=== PATIENT | male | born 1950 | race Caucasian/White ===

== ENCOUNTER 2019-03-08 11:07 | Emergency (ER) | payer MEDICARE, BC ==
[~2019-03-08] VITALS: Ht 175.3 cm; Wt 99.8 kg
[2019-03-08] MEDS ORDERED: ASPI81CH PO (12:04)
[2019-03-08] MEDS ORDERED: [UNRECOGNIZED DRUG - OTHER] PO (12:04)
[2019-03-08] MEDS ORDERED: LOSA50 PO (12:04)
[2019-03-08] MEDS ORDERED: ALLEGRA ALLERG180 MG PO (12:05)
[2019-03-31] MEDS ORDERED: TAMS.4ER PO (12:23)
[2019-03-31] MEDS ORDERED: Aspirin EC81 MG PO (12:23)
[2019-03-31] MEDS ORDERED: LOSARTAN-HCTZ1 EACH PO (12:23)
== END 2019-03-08 13:45 | disposition home or self-care (01) ==
LOC: ER 11:07
DX: K64.4 Residual hemorrhoidal skin tags (principal); Z79.899 Other long term (current) drug therapy; Z79.82 Long term (current) use of aspirin; I10 Essential (primary) hypertension
CPT/HCPCS: 99282

== ENCOUNTER 2019-04-08 09:12 | Day surgery (SDC) | payer MEDICARE, BC ==
[~2019-04-08] VITALS: Ht 175.3 cm; Wt 97.6 kg
[~2019-04-08 09:12] MED LIST: ALLEGRA ALLERG180 MG PO; ASPI81CH PO; Aspirin EC81 MG PO; LOSA50 PO; LOSARTAN-HCTZ1 EACH PO; TAMS.4ER PO; [UNRECOGNIZED DRUG - OTHER] PO
== END 2019-04-08 11:25 | disposition home or self-care (01) ==
LOC: ORSCSDS 09:12
PROVIDERS: Surgery
PROC: 0DBP8ZX Excision of Rectum, Via Natural or Artificial Opening Endoscopic, Diagnostic (ICD-10-PCS; principal; 2019-04-08 10:30)
DX: Z12.11 Encounter for screening for malignant neoplasm of colon (principal); K62.1 Rectal polyp; I10 Essential (primary) hypertension; E78.5 Hyperlipidemia, unspecified; E66.9 Obesity, unspecified; Z87.891 Personal history of nicotine dependence; Z68.33 Body mass index [BMI] 33.0-33.9, adult; Z79.82 Long term (current) use of aspirin; Z79.899 Other long term (current) drug therapy
CPT/HCPCS: 88305; J2704

== ENCOUNTER 2023-01-07 06:13 | Day surgery (SDC) | payer MEDICARE ==
[~2023-01-07] VITALS: Ht 172.7 cm; Wt 91.5 kg
[2023-01-07] MEDS ORDERED: ROSUVASTATIN CAL5 MG PO (06:29)
[2023-01-07] MEDS ORDERED: OMEP20ER PO (06:32)
--- NOTE | 2023-01-07 06:36 | NUR ---
01/07/23 0636 Afia Escalona AT 0630 PLEDGET AT 0631
[2023-01-07 07:59] VITALS: BP 115/82
--- NOTE | 2023-01-07 08:01 | NUR ---
01/07/23 0801 Enrique Cruz IV REMOVED INTACT. SITE WNL.
== END 2023-01-07 08:12 | disposition home or self-care (01) ==
LOC: ORSCSDS 06:13
PROVIDERS: Student in an Organized Health Care Education/Training Program
PROC: 08RJ3JZ Replacement of Right Lens with Synthetic Substitute, Percutaneous Approach (ICD-10-PCS; principal; 2023-01-07 07:30)
DX: H25.13 Age-related nuclear cataract, bilateral (principal); H52.201 Unspecified astigmatism, right eye; H21.81 Floppy iris syndrome; I10 Essential (primary) hypertension; E78.00 Pure hypercholesterolemia, unspecified; J45.909 Unspecified asthma, uncomplicated; K21.9 Gastro-esophageal reflux disease without esophagitis; Z79.899 Other long term (current) drug therapy
CPT/HCPCS: J2001; J2250; J3010; J7040; V2632

== ENCOUNTER 2023-02-18 13:03 | Day surgery (SDC) | payer MEDICARE ==
[~2023-02-18] VITALS: Ht 172.7 cm; Wt 90.8 kg
[~2023-02-18 13:03] MED LIST changes: +OMEP20ER PO; +ROSUVASTATIN CAL5 MG PO
[2023-02-18 14:30] VITALS: BP 127/85
== END 2023-02-18 14:45 | disposition home or self-care (01) ==
LOC: ORSCSDS 13:03
PROVIDERS: Student in an Organized Health Care Education/Training Program
PROC: 08RK3JZ Replacement of Left Lens with Synthetic Substitute, Percutaneous Approach (ICD-10-PCS; principal; 2023-02-18 14:30)
DX: H25.12 Age-related nuclear cataract, left eye (principal); H52.202 Unspecified astigmatism, left eye; H21.81 Floppy iris syndrome; Z96.1 Presence of intraocular lens; I10 Essential (primary) hypertension; E78.00 Pure hypercholesterolemia, unspecified; K21.9 Gastro-esophageal reflux disease without esophagitis; Z79.899 Other long term (current) drug therapy
CPT/HCPCS: J2250; J3010; J7040; V2632

== ENCOUNTER 2024-07-09 09:13 | Day surgery (SDC) | payer MEDICARE ==
[~2024-07-09] VITALS: Ht 172.7 cm; Wt 94.9 kg
[~2024-07-09 09:13] MED LIST changes: +Atropine Sulfate 0.1 MG/ML 10ML SYR ONE; +Glycopyrrolate 0.2 MG/ML 1MLVIAL ONE; +Lactated Ringer's 1,000 ML IV ONE; +Ondansetron HCl 2 MG / ML 2ML Vial ONE; +ePHEDrine Sulfate 50 MG/ML 1ML Injection ONE; +propofoL 50 ML IV ONE
[2024-07-09] MEDS ORDERED: Lactated Ringer's 1,000 ML IV ONE (10:50)
[2024-07-09 12:12] VITALS: BP 134/88
== END 2024-07-09 12:05 | disposition home or self-care (01) ==
LOC: ORSCSDS 09:13
PROVIDERS: Surgery
PROC: 0DBP8ZX Excision of Rectum, Via Natural or Artificial Opening Endoscopic, Diagnostic (ICD-10-PCS; principal; 2024-07-09 10:45)
PROC: 0DBK8ZX Excision of Ascending Colon, Via Natural or Artificial Opening Endoscopic, Diagnostic (ICD-10-PCS; principal; 2024-07-09 10:45)
PROC: 0DBM8ZX Excision of Descending Colon, Via Natural or Artificial Opening Endoscopic, Diagnostic (ICD-10-PCS; principal; 2024-07-09 10:45)
DX: Z12.11 Encounter for screening for malignant neoplasm of colon (principal); Z86.0101 Personal history of adenomatous and serrated colon polyps; D12.8 Benign neoplasm of rectum; D12.2 Benign neoplasm of ascending colon; D12.4 Benign neoplasm of descending colon; K62.1 Rectal polyp; K64.0 First degree hemorrhoids; I10 Essential (primary) hypertension; E78.00 Pure hypercholesterolemia, unspecified; Z79.899 Other long term (current) drug therapy; Z87.891 Personal history of nicotine dependence; N40.0 Benign prostatic hyperplasia without lower urinary tract symptoms
CPT/HCPCS: 88305; J0461; J2405; J2704; J7120